=== PATIENT | male | born 2000 | race African-American/Black ===

== ENCOUNTER 2019-05-04 12:39 | Emergency (ER) | payer OTHER ==
[~2019-05-04] VITALS: Ht 149.9 cm; Wt 45.4 kg
[2019-05-04 12:45] VITALS: BP 126/63
[2019-05-04] MEDS ORDERED: IBUPROFEN 600 MG TAB PO ONE (15:45)
== END 2019-05-04 16:22 | disposition home or self-care (01) ==
LOC: ER 12:39
DX: S29.012A Strain of muscle and tendon of back wall of thorax, initial encounter (principal); W01.198A Fall on same level from slipping, tripping and stumbling with subsequent striking against other object, initial encounter; Y93.89 Activity, other specified; Y99.8 Other external cause status; Y92.89 Other specified places as the place of occurrence of the external cause
CPT/HCPCS: 72070